=== PATIENT | female | born 1955 | race Caucasian/White ===

== ENCOUNTER 2018-08-16 11:51 | Emergency (ER) | payer MEDICARE, OTHER ==
[~2018-08-16] VITALS: Ht 160 cm; Wt 100.0 kg
[~2018-08-16 11:51] MED LIST: AMBIEN10 MG PO; AMIODARONE HCL200 MG PO; AMITRIPTYLINE100 MG PO; EMLA CREAM 30 G30 G1 TOPICAL; FERROUS SULFAT325 MG PO; FLOMAX0.4 MG PO; GENTAMICIN SULF30 G1 TOPICAL; LEVEMIR FL100 UNIT/1 SC; LEVSIN/ANASP0.125 MG PO; LINZESS145 MCG PO; LISINOPRIL20 MG PO; NOVOLOG100 UNIT/1 SC; OXYCODONE HCL10 MG PO; PACERONE400 MG PO; PROCRIT/EP40000 UNIT SQ; PROTONIX40 MG PO; PROZAC40 MG PO; RENVELA0.8 GM PO; ROCALTROL0.25 MCG PO; ROPINIROLE HCL2 MG PO; SYNTHROID25 MCG PO; VITAMIN B-121000 MCG INJ; VITAMIN D250000 UNIT PO; VOLTAREN100 GM TOPICAL; XANAX1 MG PO; ZANAFLEX4 MG PO; ZIAC 5-6.25 MG1 TAB PO; ZYLOPRIM100 MG PO
[2018-08-16 12:00] VITALS: Ht 160 cm; Wt 100.0 kg
[2018-08-16 13:18] LABS: BASOPHILS 0.7 % (0-2); EOSINOPHILS 6.8 % (0-7); HEMATOCRIT 31.8 % (36.0-48.0); HEMOGLOBIN 9.6 g/dL (12-16); IMMATURE GRANULOCYTES 0.7 % (0-5); LYMPHOCYTES 26.9 % (15-50); MCH 28.2 pg (26.0-34.0); MCHC 30.2 g/dL (31.0-37.0); MCV 93.3 fL (80.0-100.0); MEAN PLATELET VOLUME 8.7 fL (7.4-10.4); MONOCYTES 8.6 % (2-11); NEUTROPHILS 56.3 % (40-80); PLATELET COUNT 248 10x3/uL (130-400); RBC 3.41 10x6/uL (4.00-5.40); RDW 17.3 % (11.5-14.5); WBC 7.2 10x3/uL (4.8-10.8)
[2018-08-16 13:26] LABS: INR 1.14 (0.85-1.17); PROTIME 14.1 SECONDS (11.6-15.0)
[2018-08-16 13:34] LABS: ALBUMIN 2.4 g/dL (3.4-5.0); ALKALINE PHOSPHATASE 113 U/L (46-116); ALT (SGPT) 19 U/L (10-68); BILIRUBIN - TOTAL 0.54 mg/dL (0.2-1.3); CALC OSMOLALITY 273 mosm/kg (275-300); CALCIUM 9.8 mg/dL (8.5-10.1); CHLORIDE - SERUM 94 mmol/L (98-107); CREATININE - SERUM 6.3 mg/dL (0.6-1.3); GLUCOSE 103 mg/dL (74-106); POTASSIUM - SERUM 3.7 mmol/L (3.5-5.1); PROTEIN - SERUM 8.7 g/dL (6.4-8.2); SODIUM 133 mmol/L (136-145); UREA NITROGEN 34 mg/dL (7-18); eGFR NON AFRICAN AMERICAN 7 mL/min (90-120)
[2018-08-16 13:44] LABS: CKMB 0.5 U/L (0.0-3.6); CREATINE KINASE 24 UL (21-215); MAGNESIUM - SERUM 1.8 mg/dL (1.8-2.4); TROPONIN-I < 0.017 ng/mL (0.000-0.060)
[2018-08-16 19:45] VITALS: BP 100/42
== END 2018-08-16 19:45 | disposition home or self-care (01) ==
LOC: D.ER 11:51
PROVIDERS: Emergency Medicine
DX: E11.9 Type 2 diabetes mellitus without complications (principal); N18.6 End stage renal disease; D63.1 Anemia in chronic kidney disease; Z99.2 Dependence on renal dialysis; Z86.79 Personal history of other diseases of the circulatory system; R55 Syncope and collapse

== ENCOUNTER 2018-08-19 10:54 | Inpatient (IN) | payer MEDICARE, OTHER ==
[~2018-08-19] VITALS: Ht 154.9 cm; Wt 99.8 kg
[2018-08-19 11:46] LABS: BASOPHILS 0.6 % (0-2); EOSINOPHILS 5.6 % (0-7); HEMATOCRIT 32.7 % (36.0-48.0); HEMOGLOBIN 10.2 g/dL (12-16); IMMATURE GRANULOCYTES 0.8 % (0-5); LYMPHOCYTES 20.8 % (15-50); MCH 28.7 pg (26.0-34.0); MCHC 31.2 g/dL (31.0-37.0); MCV 92.1 fL (80.0-100.0); MEAN PLATELET VOLUME 8.5 fL (7.4-10.4); MONOCYTES 6.4 % (2-11); NEUTROPHILS 65.8 % (40-80); PLATELET COUNT 250 10x3/uL (130-400); RBC 3.55 10x6/uL (4.00-5.40); RDW 17.2 % (11.5-14.5); WBC 7.2 10x3/uL (4.8-10.8)
[2018-08-19 12:07] LABS: ALBUMIN 2.7 g/dL (3.4-5.0); ALKALINE PHOSPHATASE 112 U/L (46-116); ALT (SGPT) 20 U/L (10-68); BILIRUBIN - TOTAL 0.56 mg/dL (0.2-1.3); CALC OSMOLALITY 278 mosm/kg (275-300); CARBON DIOXIDE 26.2 mmol/L (21.0-32.0); CHLORIDE - SERUM 94 mmol/L (98-107); GLUCOSE 105 mg/dL (74-106); POTASSIUM - SERUM 3.7 mmol/L (3.5-5.1); PROTEIN - SERUM 8.9 g/dL (6.4-8.2); SODIUM 132 mmol/L (136-145); UREA NITROGEN 52 mg/dL (7-18); eGFR NON AFRICAN AMERICAN 5 mL/min (90-120)
[2018-08-19 12:17] LABS: CKMB 0.7 U/L (0.0-3.6); CREATINE KINASE 26 UL (21-215); MAGNESIUM - SERUM 2.1 mg/dL (1.8-2.4); TROPONIN-I < 0.017 ng/mL (0.000-0.060)
--- NOTE | 2018-08-19 14:50 | MORECARE ---
CASE MANAGEMENT DISCHARGE SUMMARY PATIENT: NAV LEWIS UNIT: [id number] ADM DATE: 08/19/18 AGE: 63 : 53 SEX: F [facility] AUTHOR: OZ EL PHYSICIAN: REFERRING PHYSICIAN: LUCA SOLANO MD DATE OF SERVICE: 08/19/18 Discharge Plan Patient Name: NAV LEWIS Facility: [facility]:[place] : 1955 Planned Disposition: Anticipated Discharge Date: Discharge Date: Expected LOS: Initial Reviewer: [email or web address] Initial Review Date: 08/19/2018 Generated: 08/19/18 3:50 pm Patient Name: NAV LEWIS Page [id number] at 1450 All edits/amendments must be made on the electronic document DICTATION DATE: 08/19/181448 TRANSPORTATION BROKER: AUDREY 08/19/181448 RPT#: [id number] DC DATE: STATUS: ADM IN [facility] [address] [place] [address] END OF REPORT
--- NOTE | 2018-08-19 15:08 | NUR ---
RECEIVED REPORT FROM GRACIA IN ER. PT IN DIALYSIS AT THIS TIME.
[2018-08-19 17:13] LABS: BASOPHILS 0.8 % (0-2); EOSINOPHILS 4.5 % (0-7); HEMATOCRIT 29.7 % (36.0-48.0); HEMOGLOBIN 9.4 g/dL (12-16); LYMPHOCYTES 22.4 % (15-50); MCH 28.6 pg (26.0-34.0); MCHC 31.6 g/dL (31.0-37.0); MCV 90.3 fL (80.0-100.0); MEAN PLATELET VOLUME 8.5 fL (7.4-10.4); MONOCYTES 6.2 % (2-11); NEUTROPHILS 65.1 % (40-80); PLATELET COUNT 215 10x3/uL (130-400); RBC 3.29 10x6/uL (4.00-5.40); RDW 16.9 % (11.5-14.5)
[2018-08-19 17:29] LABS: WBC 5.1 10x3/uL (4.8-10.8)
[2018-08-19 18:04] LABS: ANION GAP 15.2 mmol/L (8-16); CALCIUM 8.8 mg/dL (8.5-10.1); CARBON DIOXIDE 25.8 mmol/L (21.0-32.0)
--- NOTE | 2018-08-19 18:25 | NUR ---
RECEIVED PT FROM [facility] AT THIS TIME. X4 STAFF TO GET PT TRANSFERED FROM STRETCHER TO BED. REPOSITIONED PT IN BED, PUT PT ON 3L NC. ORIENTED PT AND PT'S TO ROOM AND CALL LIGHT. PT DENIES ANY NEEDS AT THIS TIME. CALL LIGHT IN REACH, NAD NOTED.
[2018-08-19 21:25] VITALS: BP 90/42
--- NOTE | 2018-08-19 21:45 | NUR ---
PATIENT RESTING IN BED WITH NO S/S OF DISTRESS. BED IN LOWEST POSITION AND CALL LIGHT WITHIN REACH. ENCOURAGED THE PATIENT TO CALL IF SHE HAS NEEDS. WILL CONTINUE TO MONITOR.
--- NOTE | 2018-08-19 23:49 | NUR ---
BEGAN TUBE FEEDING
[2018-08-20 05:50] VITALS: BP 89/32
[2018-08-20 06:26] VITALS: BP 110/51; BMI 41.6
[2018-08-20 06:36] LABS: BASOPHILS 0.9 % (0-2); HEMATOCRIT 30.7 % (36.0-48.0); HEMOGLOBIN 9.4 g/dL (12-16); IMMATURE GRANULOCYTES 0.9 % (0-5); LYMPHOCYTES 31.5 % (15-50); MCH 28.3 pg (26.0-34.0); MCHC 30.6 g/dL (31.0-37.0); MEAN PLATELET VOLUME 8.2 fL (7.4-10.4); MONOCYTES 8.7 % (2-11); PLATELET COUNT 225 10x3/uL (130-400); RBC 3.32 10x6/uL (4.00-5.40); RDW 17.5 % (11.5-14.5); WBC 5.4 10x3/uL (4.8-10.8)
[2018-08-20 06:48] LABS: MCV 92.5 fL (80.0-100.0)
[2018-08-20 07:02] LABS: ANION GAP 13.3 mmol/L (8-16); CALCIUM 9.3 mg/dL (8.5-10.1); CARBON DIOXIDE 27.9 mmol/L (21.0-32.0); CREATININE - SERUM 6.2 mg/dL (0.6-1.3); POTASSIUM - SERUM 3.2 mmol/L (3.5-5.1)
[2018-08-20 08:33] VITALS: BP 114/37
--- NOTE | 2018-08-20 09:43 | NUR ---
Rehab Note- Acute Inpatient Rehab prescreen order received. The patient is a new admit & has pending PT, OT, & ST Evals. The doctor has suggested needing correction care placement d/t the families inability to care for the patient- will follow at this time. Thank you for this referral! Lizette Batres RN CLinical Liaison, [facility] Rehab
[2018-08-20 10:47] VITALS: Ht 154.9 cm; Wt 99.8 kg
[2018-08-20 12:12] VITALS: BP 97/32
--- NOTE | 2018-08-20 13:50 | NUR ---
THIS NURSE AGREES WITH THE SWITCH COUPLER ASSESSMENT AND CHARTING.
--- NOTE | 2018-08-20 15:27 | NUR ---
OT NOTE: PT COMPLETED SIDE ROLLING WITH MOD A. PT COMPLETED UE AROM AXS. THANK YOU, HUMBERTO MARRUFO
[2018-08-20 16:44] VITALS: BP 106/41
--- NOTE | 2018-08-20 19:19 | NUR ---
PT RESTING QUIETLY. CALL LIGHT IN REACH. NO SIGNS OF DISTRESS OR PAIN. PEG FEEDING RUNNING CONTINOUSLY AT 45ML/HR WITH FLUSH Q4HRS. BED IN LOW. SIDE RAILS X2. RESP EVEN AND UNLABORED. WILL CONTINUE TO MONITOR.
[2018-08-20 20:00] VITALS: BP 95/38
[2018-08-21] VITALS: BP 105/41
--- NOTE | 2018-08-21 01:37 | NUR ---
PT RESTING QUIETLY. CALL LIGHT IN REACH. NO SIGNS OF DISTRESS OR PAIN. CHANGED OUT PEG FEED TUBING.
--- NOTE | 2018-08-21 04:20 | NUR ---
I have reviewed this patient and I concur with the Shift Assessment completed by the Licensed Practical Nurse today this shift.
[2018-08-21 04:30] VITALS: BP 107/46
[2018-08-21 07:15] LABS: BASOPHILS 0.7 % (0-2); EOSINOPHILS 7.3 % (0-7); HEMATOCRIT 31.3 % (36.0-48.0); HEMOGLOBIN 9.4 g/dL (12-16); IMMATURE GRANULOCYTES 0.9 % (0-5); LYMPHOCYTES 31.6 % (15-50); MCV 93.2 fL (80.0-100.0); MEAN PLATELET VOLUME 8.9 fL (7.4-10.4); MONOCYTES 10.9 % (2-11); NEUTROPHILS 48.6 % (40-80); PLATELET COUNT 246 10x3/uL (130-400); RBC 3.36 10x6/uL (4.00-5.40); RDW 17.3 % (11.5-14.5); WBC 5.3 10x3/uL (4.8-10.8)
[2018-08-21 07:17] LABS: ANION GAP 12.1 mmol/L (8-16); CALCIUM 9.8 mg/dL (8.5-10.1); CARBON DIOXIDE 29.4 mmol/L (21.0-32.0); CREATININE - SERUM 7.1 mg/dL (0.6-1.3); POTASSIUM - SERUM 3.5 mmol/L (3.5-5.1)
[2018-08-21 08:55] VITALS: BP 129/46
--- NOTE | 2018-08-21 13:34 | NUR ---
Nutrition Follow up: Pt gone to dialysis now Spoke with pt this morning about nutrition. Pt reports tolerating TF well Pt has Nepro continuous feeds at 45mL/hour Pt had a swallow study yesterday she was cleared for regular diet Recommend to start diet as tolerated once medically feasible RD following
--- NOTE | 2018-08-21 14:56 | NUR ---
Rehab Note- Continue to follow at this time. Has EGD planned for 08/22/18. Lizette Batres RN CLinical Liaison, [facility] Rehab
[2018-08-21 16:20] VITALS: BP 122/40
--- NOTE | 2018-08-21 19:17 | NUR ---
PT RESTING IN BED. NO C/O PAIN. NO S/S OF ACUTE DISTRESS NOTED. PT DENIES ANYTHING FURTHER. WILL CONTINUE TO MONITOR.
--- NOTE | 2018-08-21 19:50 | NUR ---
LYING IN BED. ALERT AND ORIENTED X4. CONFUSED AT TIMES. RESP EVEN AND NONLABORED. O2 @ 3L/NC. SOB WITH EXERTION. BEDRIDDEN. REQUIRES STAFF X2 TO TURN PT. RT ARM RESERVE WITH FISTULA NOTED WITH DRSG INTACT. ALSO HAS PERITONEAL CATH. PEG TUBE IS CLAMPED AT THIS TIME. RESIDUAL OF 30 ML NOTED OF FEEDING. DRSG NOTED TO COCCYX. BILAT FEET ARE DRY, SCALY ON PLANTAR SURFACE. DENIES PAIN. BRUISES NOTED TO BUE. DENIES PAIN. SALINE LOCK NOTED TO LT FOREARM. PT AWARE THAT SHE IS NPO AFTER MIDNIGHT. SR ELEVATED X2. CL IN REACH.
[2018-08-21 19:59] VITALS: BP 121/49
[2018-08-22 01:10] VITALS: BP 112/43
--- NOTE | 2018-08-22 01:15 | NUR ---
V/S TAKEN AT THIS TIME. VERY DROWSY FROM SLEEPING PILL. NO DISTRESS. CL IN REACH.
[2018-08-22 04:32] VITALS: BP 140/55
--- NOTE | 2018-08-22 05:39 | NUR ---
PT IS DAILY WEIGHT BUT UNABLE TO STAND AND NO BEDSCALE ON BED.
--- NOTE | 2018-08-22 07:05 | NUR ---
INITIAL ROUNDING, PATIENT RESTING IN BED, SUPINE. SHE DENIES PAIN, O2 VIA NC IN PLACE. AWAITING EGD. TUBE FEEDING OFF. CALL ALMA IN REACH
[2018-08-22 07:24] LABS: BASOPHILS 0.7 % (0-2); EOSINOPHILS 7.7 % (0-7); HEMOGLOBIN 9.4 g/dL (12-16); IMMATURE GRANULOCYTES 0.7 % (0-5); LYMPHOCYTES 38.7 % (15-50); MCH 28.4 pg (26.0-34.0); MCHC 30.3 g/dL (31.0-37.0); MCV 93.7 fL (80.0-100.0); MEAN PLATELET VOLUME 8.8 fL (7.4-10.4); MONOCYTES 8.2 % (2-11); PLATELET COUNT 206 10x3/uL (130-400); RBC 3.31 10x6/uL (4.00-5.40); RDW 17.3 % (11.5-14.5); WBC 4.1 10x3/uL (4.8-10.8)
[2018-08-22 07:39] LABS: ANION GAP 9.5 mmol/L (8-16); CALCIUM 9.8 mg/dL (8.5-10.1); CARBON DIOXIDE 32.7 mmol/L (21.0-32.0); CREATININE - SERUM 5.1 mg/dL (0.6-1.3); PHOSPHOROUS 4.4 mg/dL (2.5-4.9); POTASSIUM - SERUM 3.2 mmol/L (3.5-5.1)
[2018-08-22 08:13] VITALS: BP 128/30
[2018-08-22 12:12] VITALS: BP 122/36
--- NOTE | 2018-08-22 19:55 | NUR ---
LYING IN BED TALKING TO VISITORS. ALERT AND ORIENTED X4. RESP IRREG. O2 @3L/NC. BBS CTA BUT DIMINISHED BILAT. ABD OBESE. BS PRESENT X4 QUADS. PEG TUBE NOTED WITH NEPRO CONTINUOUS FEEDING INFUSING @ 45 ML/HR. PERITONEAL DIALYSIS CATH NOTED TO ABD WITH DRSG. RT ARM RESERVE WITH DIALYSIS FISTULA TO RT UPPER ARM. STATES SHE RARELY URINATES, JUST DRIBBLES. BRUISES NOTED TO BUE. SCDS IN USE BILAT. BILAT PLANTAR SURFACE OF FEET ARE DRY, SCALY. SALINE LOCK NOTED NOTED TO LT FOREARM. DENIES PAIN. SR ELVATED X2. CL IN REACH. GEN WEAKNESS NOTED.
[2018-08-22 20:00] VITALS: BP 135/49
[2018-08-22 23:30] VITALS: BP 133/43
--- NOTE | 2018-08-23 01:06 | NUR ---
BED BATH GIVEN PER THERMAL CUTTER HELPER.
[2018-08-23 05:00] VITALS: BP 139/55
--- NOTE | 2018-08-23 05:15 | NUR ---
RESTED WELL DURING THE NIGHT. NO DISTRESS. CL IN REACH.
[2018-08-23 07:31] LABS: BASOPHILS 0.9 % (0-2); EOSINOPHILS 6.8 % (0-7); HEMATOCRIT 29.9 % (36.0-48.0); HEMOGLOBIN 9.1 g/dL (12-16); IMMATURE GRANULOCYTES 0.7 % (0-5); LYMPHOCYTES 35.7 % (15-50); MCH 28.3 pg (26.0-34.0); MCHC 30.4 g/dL (31.0-37.0); MCV 93.1 fL (80.0-100.0); MEAN PLATELET VOLUME 8.9 fL (7.4-10.4); MONOCYTES 10.5 % (2-11); NEUTROPHILS 45.4 % (40-80); PLATELET COUNT 231 10x3/uL (130-400); RBC 3.21 10x6/uL (4.00-5.40); RDW 17.2 % (11.5-14.5); WBC 4.6 10x3/uL (4.8-10.8)
[2018-08-23 07:50] LABS: ANION GAP 8.9 mmol/L (8-16); CALCIUM 10.1 mg/dL (8.5-10.1); CARBON DIOXIDE 30.4 mmol/L (21.0-32.0); CREATININE - SERUM 5.6 mg/dL (0.6-1.3); PHOSPHOROUS 4.6 mg/dL (2.5-4.9); POTASSIUM - SERUM 3.3 mmol/L (3.5-5.1)
[2018-08-23 08:00] VITALS: BP 124/34
--- NOTE | 2018-08-23 08:33 | NUR ---
NEPRO DIETARY SUPP WILL NOT RECORD TO JUL. IT IS ORDERED IN DIETARY. CHANGED TO 30 ML/HR PER DR. GRANADOS.
--- NOTE | 2018-08-23 15:13 | MORECARE ---
CASE MANAGEMENT DISCHARGE SUMMARY PATIENT: NAV LEWIS UNIT: [id number] ADM DATE: 08/19/18 AGE: 63 : 53 SEX: F ROOM/BED: D.1207 AUTHOR: OZ EL PHYSICIAN: REFERRING PHYSICIAN: LUCA SOLANO MD DATE OF SERVICE: 08/23/18 Discharge Plan Patient Name: NAV LEWIS Facility: [facility]:[place] : 1955 Planned Disposition: Anticipated Discharge Date: Discharge Date: Expected LOS: Initial Reviewer: [email or web address] Initial Review Date: 08/19/2018 Generated: 08/23/18 4:12 pm External Providers External Provider: [facility] Next Contact Date: Service Request Date: Service Type: Resolution: Reviewer: Comments: Last DP export: 08/19/18 1:50 p Patient Name: NAV LEWIS Page [id number] at 1513 All edits/amendments must be made on the electronic document DICTATION DATE: 08/23/181511 SODA TESTER: AUDREY 08/23/18 151 RPT#: [id number] ME DATE: STATUS: ADM IN [facility] [address] [place] [address] END OF REPORT
--- NOTE | 2018-08-23 15:17 | NUR ---
OT NOTE: PT COMPLETED BED MOB WITH MAX A. PT COMPLETED SUPINE TO SIT WITH MAX A. PT COMPLETED EOB SITTING WITH MOD A. PT REQUIRED TOTAL A WITH KIRAN SOCKS. PT REQUIRE MAX A FOR SIT TO STAND. PT WOULD BENEFIT FROM [facility] FOR INCREASED QUALITY OF LIFE. THANK YOU, HUMBERTO MARRUFO
[2018-08-23 16:00] VITALS: BP 110/38
--- NOTE | 2018-08-23 16:02 | NUR ---
DENIES ANY NEEDS AT THIS TIME.
--- NOTE | 2018-08-23 16:11 | MORECARE ---
CASE MANAGEMENT DISCHARGE SUMMARY PATIENT: NAV LEWIS UNIT: [id number] ADM DATE: 08/19/18 AGE: 63 : 53 SEX: F ROOM/BED: D.1207 AUTHOR: OZ EL PHYSICIAN: REFERRING PHYSICIAN: LUCA SOLANO MD DATE OF SERVICE: 08/23/18 Discharge Plan Patient Name: NAV LEWIS Facility: [facility]:[place] : 1955 Planned Disposition: Mcfp Facility Anticipated Discharge Date: 08/26/18 Discharge Date: Expected LOS: 7 Initial Reviewer: [email or web address] Initial Review Date: 08/19/2018 Generated: 08/23/18 5:10 pm Last DP export: 08/23/18 2:13 p Patient Name: NAV LEWIS Page 50300 at 1611 All edits/amendments must be made on the electronic document DICTATION DATE: 08/23/18 1610 BLEACH RANGE OPERATOR: AUDREY 08/23/18 1610 RPT#: [id number] DC DATE: STATUS: ADM IN [facility] [address] [place] [address] END OF REPORT
--- NOTE | 2018-08-23 16:19 | MORECARE ---
CASE MANAGEMENT DISCHARGE SUMMARY PATIENT: NAV LEWIS UNIT: [id number] ADM DATE: 08/19/18 AGE: 63 : 53 SEX: F ROOM/BED: D.1207 AUTHOR: OZ EL PHYSICIAN: REFERRING PHYSICIAN: LUCA SOLANO MD DATE OF SERVICE: 08/23/18 Discharge Plan Patient Name: NAV LEWIS Facility: [facility]:[place] : 1955 Planned Disposition: Assisted Facility Anticipated Discharge Date: 08/26/18 Discharge Date: Expected LOS: 7 Initial Reviewer: [email or web address] Initial Review Date: 08/19/2018 Generated: 08/23/18 5:19 pm DCPIA - Discharge Planning Initial Assessment Updated by [email or web address]: Cinthia Mar on 08/23/18 4:13 pm * Is the patient Alert and Oriented? Yes * How many steps to enter\exit or inside your home? Ramp * PCP Dr. Jenkins in [place] * Pharmacy [facility] in [place] * Preadmission Environment Home with Family * ADLs Partial Dependent * Partial ADLs (Assistance needed) Ambulation Bathing Dressing Medication Management Toileting Transfers * Equipment CPAP Hospital Bed Bandar Lift Oxygen Wheelchair * Other Equipment Home and Portable Oxygen * List name and contact numbers for known caregivers / representatives who currently or will assist patient after discharge: Ilan Lewis, spouse, cell [phone] * Verbal permission to speak to the caregivers and representatives has been obtained from the patient. Yes * Community resources currently utilized Home Health * Please name any agencies selected above. [facility], [place] [facility], MWF 11:00, Medicaid Transportation * Additional services required to return to the preadmission environment? No * Can the patient safely return to the preadmission environment? Yes * Has this patient been hospitalized within the prior 30 days at any hospital? Yes Last DP export: 08/23/18 3:11 p Patient Name: NAV LEWIS Page [id number] at 1619 All edits/amendments must be made on the electronic document DICTATION DATE: 08/23/188 CADD OPERATOR: AUDREY 08/23/18 1618 RPT#: [id number] DC DATE: STATUS: ADM IN [facility] [address] [facility] [place] [address] END OF REPORT
--- NOTE | 2018-08-23 16:26 | MORECARE ---
CASE MANAGEMENT DISCHARGE SUMMARY PATIENT: NAV LEWIS UNIT: [id number] ADM DATE: 08/19/18 AGE: 63 : 53 SEX: F ROOM/BED: D.1207 AUTHOR: NIKKO,DOC PHYSICIAN: REFERRING PHYSICIAN: LUCA SOLANO MD DATE OF SERVICE: 08/23/18 Discharge Plan Patient Name: NAV LEWIS Facility: [facility]:[place] : 1955 Planned Disposition: Care Home Facility Anticipated Discharge Date: 08/26/18 Discharge Date: Expected LOS: 7 Initial Reviewer: [email or web address] Initial Review Date: 08/19/2018 Generated: 08/23/18 5:26 pm Comments DCP- Discharge Planning Updated by [email or web address]: Cinthia Mar on 08/23/18 3:[address] Patient Name: NAV LEWIS Admission Status: ER Accout number: [id number] Admission Date: 08-19-2018 : 1955 Admission Diagnosis:WEAKNESS Attending: LUCA SOLANO Current LOS: 4 Anticipated DC Date: 08-26-2018 Planned Disposition: Care Home Facility Primary Insurance: MEDICARE A & B Discharge Planning Comments: After obtaining verbal consent, CM met with patient and her spouse about discharge planning / needs. Patient and spouse informed CM that they want patient to go to [facility] SN[facility] (Medicare bed) for rehab upon hospital [place]. States they do not want to go back to [facility]. States they were not happy with their stay there. Spouse signed BRITTNEY form. CM called Roxann Mullins with [facility] about referral. Faxed records as requested. CM will continue to follow and assist as needed with discharge planning. [employer] And Recausticizing Operator: Cinthia Mar DCPIA - Discharge Planning Initial Assessment Updated by [email or web address]: Cinthia Mar on 08/23/18 4:13 pm * Is the patient Alert and Oriented? Yes * How many steps to enter\exit or inside your home? Ramp * PCP Dr. Jenkins in [place] * Pharmacy [facility] in [place] * Preadmission Environment Home with Family * ADLs Partial Dependent * Partial ADLs (Assistance needed) Ambulation Bathing Dressing Medication Management Toileting Transfers * Equipment CPAP Hospital Bed Bandar Lift Oxygen Wheelchair * Other Equipment Home and Portable Oxygen * List name and contact numbers for known caregivers / representatives who currently or will assist patient after discharge: Ilan Lewis, spouse, cell [phone] * Verbal permission to speak to the caregivers and representatives has been obtained from the patient. Yes * Community resources currently utilized Home Health * Please name any agencies selected above. [facility], [facility], MWF 11:00, Medicaid Transportation * Additional services required to return to the preadmission environment? No * Can the patient safely return to the preadmission environment? Yes * Has this patient been hospitalized within the prior 30 days at any hospital? Yes Coverage Notice Reviewer: [email or web address] Alka Mar Notice Issued Date-Time: 08/23/2018 14:35 Notice Type: Patient Choice Letter Notice Delivered To: Family Member Relationship to Patient: Spouse Print And Pattern Designer Name: Candelaria Head Delivery Method: HAND - Hand Delivered Cassy Days: Prior Verbal Notification: Recipient Understood Notice: Yes Recipient Signature: Yes Med Rec Note Co-signed by Attending: Coverage Notice Comment: Last DP export: 08/23/18 3:19 p Patient Name: NAV LEWIS Page 46760 at 1626 All edits/amendments must be made on the electronic document DICTATION DATE: 08/23/181625 WEIGHT CALLER: AUDREY 08/23/181625 RPT#: [id number] DC DATE: STATUS: ADM IN [facility] [address] [place] [address] END OF REPORT
[2018-08-23 21:14] VITALS: BP 146/61
[2018-08-24] VITALS: BP 138/51
--- NOTE | 2018-08-24 03:21 | NUR ---
I have reviewed this patient and I concur with the Shift Assessment completed by the Licensed Practical Nurse today this shift.
[2018-08-24 04:00] VITALS: BP 148/49
[2018-08-24 06:45] LABS: BASOPHILS 0.8 % (0-2); EOSINOPHILS 7.4 % (0-7); HEMOGLOBIN 9.7 g/dL (12-16); MCH 28.6 pg (26.0-34.0); MCHC 30.3 g/dL (31.0-37.0); MCV 94.4 fL (80.0-100.0); MEAN PLATELET VOLUME 8.6 fL (7.4-10.4); MONOCYTES 8.2 % (2-11); NEUTROPHILS 44.6 % (40-80); PLATELET COUNT 225 10x3/uL (130-400); RBC 3.39 10x6/uL (4.00-5.40); RDW 17.5 % (11.5-14.5)
[2018-08-24 07:06] LABS: CALCIUM 10.6 mg/dL (8.5-10.1); CARBON DIOXIDE 29.6 mmol/L (21.0-32.0); CREATININE - SERUM 4.3 mg/dL (0.6-1.3); PHOSPHOROUS 3.5 mg/dL (2.5-4.9); POTASSIUM - SERUM 3.6 mmol/L (3.5-5.1)
--- NOTE | 2018-08-24 07:30 | NUR ---
PT AOX4 RESP EVEN AND NONLABORED PT DENIES NEEDS AT THIS TIME SRX2 BED AT LOWEST SETTING CALL LIGHT WITHIN REACH WILL CONTINUE TO MONITOR
[2018-08-24 07:53] VITALS: BP 165/67
--- NOTE | 2018-08-24 11:07 | NUR ---
Nutrition Follow up: Pt is sleeping now Physician has decreased TF to 30mL/hour Spoke with nursing about diet order-order says clear liquid however physician note says ok to advance to full liquid- nursing to clarify if needed and make adjustments RD following
[2018-08-24 11:59] VITALS: BP 121/57
[2018-08-24 16:06] VITALS: BP 145/48
--- NOTE | 2018-08-24 19:25 | NUR ---
PT LYING IN BED. CALL LIGHT IN REACH. PT DENIES NEEDS AT THIS TIME OR PAIN. BED IN LOW. SIDE RAILS X2. PEG ON CONTINOUS FEEDING. PUMP WORKING AT 30ML/HR AND FLUSH Q4. PT ON 3L OF O2 VIA HUMIDIFIER. RESP EVEN AND UNLABORED. WILL CONTINUE TO MONITOR.
[2018-08-24 20:14] VITALS: BP 131/54
--- NOTE | 2018-08-25 01:58 | NUR ---
PT RESTING QUIETLY. CALL LIGHT IN REACH. NO SIGNS OF DISTRESS OR PAIN. RESP EVEN AND UNLABORED.
--- NOTE | 2018-08-25 02:06 | NUR ---
I have reviewed this patient and I concur with the Shift Assessment completed by the Licensed Practical Nurse today this shift.
[2018-08-25 05:17] VITALS: BP 142/56
[2018-08-25 06:44] LABS: ANION GAP 11.1 mmol/L (8-16); CALCIUM 11.6 mg/dL (8.5-10.1); CARBON DIOXIDE 29.6 mmol/L (21.0-32.0); CREATININE - SERUM 5.2 mg/dL (0.6-1.3); POTASSIUM - SERUM 3.7 mmol/L (3.5-5.1)
[2018-08-25 07:30] LABS: BASOPHILS 1.1 % (0-2); EOSINOPHILS 8.4 % (0-7); HEMATOCRIT 32.6 % (36.0-48.0); HEMOGLOBIN 9.7 g/dL (12-16); IMMATURE GRANULOCYTES 1.6 % (0-5); MCH 28.1 pg (26.0-34.0); MCHC 29.8 g/dL (31.0-37.0); MCV 94.5 fL (80.0-100.0); MEAN PLATELET VOLUME 9.1 fL (7.4-10.4); MONOCYTES 9.7 % (2-11); NEUTROPHILS 42.2 % (40-80); PLATELET COUNT 244 10x3/uL (130-400); RBC 3.45 10x6/uL (4.00-5.40); RDW 17.3 % (11.5-14.5); WBC 4.4 10x3/uL (4.8-10.8)
--- NOTE | 2018-08-25 07:30 | NUR ---
PT AOX4 RESP EVEN AND NONLABORED PT DENIES NEEDS AT THIS TIME IV TO LEFT FOREARM PATENT AND INTACT AT THIS TIME SRX2 BED AT LOWEST SETTING CALL LIGHT WITHIN REACH WILL CONTINUE TO MONITOR
[2018-08-25 07:39] VITALS: BP 161/62
[2018-08-25 15:54] LABS: APPEARANCE HAZY (CLEAR); COLOR YELLOW (YELLOW)
[2018-08-25 15:55] LABS: BILIRUBIN NEGATIVE (NEGATIVE); GLUCOSE NEGATIVE (NEGATIVE); KETONE NEGATIVE (NEGATIVE); NITRITE NEGATIVE (NEGATIVE); PROTEIN 2+ mg/dL (NEGATIVE); RED CELLS - URINE 0-5 /hpf (0-5); UROBILINOGEN NORMAL (NORMAL); WHITE CELLS - URINE 25-50 /hpf (0-5)
[2018-08-25 15:56] LABS: BACTERIA MODERATE /hpf (NONE SEEN); EPITHELIAL CELLS 0-5 /hpf (0-5)
[2018-08-25 15:57] LABS: YEAST >1+ WITH HYPHAE /hpf (NONE SEEN)
[2018-08-25 20:00] VITALS: BP 154/62
--- NOTE | 2018-08-25 20:50 | NUR ---
PATIENT RESTING IN BED WITH NO S/S OF DISTRESS AND DENIES NEEDS AT THIS TIME. ADMINISTERED MEDS PER ORDERS AND COMPLETED ASSESSMENT. BED IN LOWEST POSITION AND CALL LIGHT WITHIN REACH. ENCOURAGED THE PATIENT TO CALL IF SHE HAS NEEDS. WILL CONTINUE TO MONITOR.
[2018-08-26 00:10] VITALS: BP 149/50
[2018-08-26 04:00] VITALS: BP 168/60
[2018-08-26 07:29] LABS: ANION GAP 10.6 mmol/L (8-16); CARBON DIOXIDE 28.5 mmol/L (21.0-32.0); CREATININE - SERUM 5.5 mg/dL (0.6-1.3); POTASSIUM - SERUM 4.1 mmol/L (3.5-5.1)
[2018-08-26 07:40] LABS: BASOPHILS 0.5 % (0-2); EOSINOPHILS 6.9 % (0-7); HEMATOCRIT 32.5 % (36.0-48.0); HEMOGLOBIN 9.8 g/dL (12-16); IMMATURE GRANULOCYTES 0.5 % (0-5); LYMPHOCYTES 28.6 % (15-50); MCH 28.2 pg (26.0-34.0); MCHC 30.2 g/dL (31.0-37.0); MCV 93.7 fL (80.0-100.0); NEUTROPHILS 55.5 % (40-80); PLATELET COUNT 255 10x3/uL (130-400); RBC 3.47 10x6/uL (4.00-5.40)
[2018-08-26 07:41] LABS: WBC 6.1 10x3/uL (4.8-10.8)
--- NOTE | 2018-08-26 08:40 | NUR ---
AM MEDS GIVEN AT THIS TIME. PT IN BED, EATING BREAKFAST. PT A/O X4, RESP EVEN AND NONLABORED ON 3L. PEG INFUSING NEPHRO AT 20CC/HR. WITH 2OML FLUSH Q 4HR. LT FA IV SL. PT DENIES ANY NEED AT THIS TIME. CALL LIGHT IN REACH, AT BEDSIDE, NAD NOTED, WILL CONTINUE PLAN OF CARE.
[2018-08-26 08:42] VITALS: BP 153/57
--- NOTE | 2018-08-26 10:00 | NUR ---
PT TRANSFERED TO DIALYSIS VIA BED, NAD NOTED.
--- NOTE | 2018-08-26 13:31 | NUR ---
Nutrition Follow Up: Chart reviewed Diet: Full Liquid; TF of Nepro @ 20 ml/hr PO Intake: 50% BM: 08/25/18 Meds and labs reviewed Rec continue advancing diet as medically feasible. Will continue to honor food preferences within diet order. TF per . RD following.
--- NOTE | 2018-08-26 14:24 | NUR ---
RECEIVED PT BACK FROM DIALYSIS VIA BED, NO CHANGES FROM PREVIOUS ASSESSMENT. PT DENIES ANY NEEDS AT THIS TIME. AT BEDSIDE, NAD NOTED, WILL CONTINUE TO MONITOR.
--- NOTE | 2018-08-26 16:56 | MORECARE ---
CASE MANAGEMENT DISCHARGE SUMMARY PATIENT: NAV LEWIS UNIT: [id number] ADM DATE: 08/19/18 AGE: 63 : 53 SEX: F ROOM/BED: D.1207 AUTHOR: OZ EL PHYSICIAN: REFERRING PHYSICIAN: LUCA SOLANO MD DATE OF SERVICE: 08/26/18 Discharge Plan Patient Name: NAV LEWIS Facility: [facility]:[place] : 1955 Planned Disposition: Custodial Facility Anticipated Discharge Date: 08/26/18 Discharge Date: Expected LOS: 7 Initial Reviewer: [email or web address] Initial Review Date: 08/19/2018 Generated: 08/26/18 5:56 pm Comments DCP- Discharge Planning Updated by [email or web address]: Jeniffer Negron on 08/26/18 3:[address] CM SPOKE WITH CASI MULLINS TODAY REGARDING REFERRAL. SHE STATED WAS COGNIZANT OF THE PATIENT. AWAITING ADDITIONAL FINANCIAL INFORMATION. WILL PROVIDE CLINICAL UPDATE. DCP- Discharge Planning Updated by [email or web address]: Cinthia Mar on 08/23/18 3:[address] Patient Name: NAV LEWIS Admission Status: ER Accout number: [id number] Admission Date: 08-19-2018 : 1955 Admission Diagnosis:WEAKNESS Attending: LUCA SOLANO Current LOS: 4 Anticipated DC Date: 08-26-2018 Planned Disposition: Custodial Facility Primary Insurance: MEDICARE A & B Discharge Planning Comments: After obtaining verbal consent, CM met with patient and her spouse about discharge planning / needs. Patient and spouse informed CM that they want patient to go to [facility] (Medicare bed) for rehab upon hospital [place]. States they do not want to go back to [facility]. States they were not happy with their stay there. Spouse signed BRITTNEY form. CM called Casi Mullins with [facility] about referral. Faxed records as requested. CM will continue to follow and assist as needed with discharge planning. Handle Turner: Cinthia Mar DCPIA - Discharge Planning Initial Assessment Updated by [email or web address]: Cinthia Mar on 08/23/18 4:13 pm * Is the patient Alert and Oriented? Yes * How many steps to enter\exit or inside your home? Ramp * PCP Dr. Jenkins in [place] * Pharmacy [facility] in [place] * Preadmission Environment Home with Family * ADLs Partial Dependent * Partial ADLs (Assistance needed) Ambulation Bathing Dressing Medication Management Toileting Transfers * Equipment CPAP Hospital Bed Bandar Lift Oxygen Wheelchair * Other Equipment Home and Portable Oxygen * List name and contact numbers for known caregivers / representatives who currently or will assist patient after discharge: Ilan Lewis, spouse, cell [phone] * Verbal permission to speak to the caregivers and representatives has been obtained from the patient. Yes * Community resources currently utilized Home Health * Please name any agencies selected above. [facility], [place] [facility], MWF 11:00, Medicaid Transportation * Additional services required to return to the preadmission environment? No * Can the patient safely return to the preadmission environment? Yes * Has this patient been hospitalized within the prior 30 days at any hospital? Yes Coverage Notice Reviewer: [email or web address] Alka Mar Notice Issued Date-Time: 08/23/2018 14:35 Notice Type: Patient Choice Letter Notice Delivered To: Family Member Relationship to Patient: Spouse Configuration Management Manager Name: Candelaria Head Delivery Method: HAND - Hand Delivered Cassy Days: Prior Verbal Notification: Recipient Understood Notice: Yes Recipient Signature: Yes Med Rec Note Co-signed by Attending: Coverage Notice Comment: Last DP export: 08/23/18 3:26 p Patient Name: NAV LEWIS Page [id number] at 1656 All edits/amendments must be made on the electronic document DICTATION DATE: 08/26/181654 LACE CUTTER: AUDREY 08/26/181654 RPT#: [id number] DC DATE: STATUS: ADM IN [facility] [address] [place] [address] END OF REPORT
[2018-08-26 17:19] VITALS: BP 119/42
--- NOTE | 2018-08-26 17:30 | NUR ---
OT NOTE: PT COMPLETED SELF FEEDING TASK WITH SET UP. PT EDUCATED ON IMPORTANCE OF UE EXERCISES FOR INCREASED I WTH BED MOB . DHRUV SOMMERS COTA
--- NOTE | 2018-08-26 19:41 | NUR ---
PATIENT RESTING IN BED WITH NO S/S OF DISTRESS AND DENIES NEEDS AT THIS TIME. BED IN LOWEST POSITION AND CALL LIGHT WITHIN REACH. ENCOURAGED THE PATIENT TO CALL IF SHE HAS NEEDS. WILL CONTINUE TO MONITOR.
[2018-08-26 21:02] VITALS: BP 122/44
[2018-08-27] VITALS: BP 131/45
[2018-08-27 04:00] VITALS: BP 146/53
[2018-08-27 06:11] LABS: BASOPHILS 0.8 % (0-2); EOSINOPHILS 8.5 % (0-7); HEMATOCRIT 31.6 % (36.0-48.0); HEMOGLOBIN 9.5 g/dL (12-16); IMMATURE GRANULOCYTES 0.6 % (0-5); LYMPHOCYTES 37.2 % (15-50); MCH 28.4 pg (26.0-34.0); MCHC 30.1 g/dL (31.0-37.0); MCV 94.3 fL (80.0-100.0); MEAN PLATELET VOLUME 8.9 fL (7.4-10.4); MONOCYTES 8.5 % (2-11); NEUTROPHILS 44.4 % (40-80); PLATELET COUNT 253 10x3/uL (130-400); RBC 3.35 10x6/uL (4.00-5.40); RDW 17.4 % (11.5-14.5); WBC 4.8 10x3/uL (4.8-10.8)
[2018-08-27 06:50] LABS: ANION GAP 10.5 mmol/L (8-16); CALCIUM 11.2 mg/dL (8.5-10.1); CARBON DIOXIDE 31.2 mmol/L (21.0-32.0); PHOSPHOROUS 3.9 mg/dL (2.5-4.9); POTASSIUM - SERUM 3.7 mmol/L (3.5-5.1)
[2018-08-27 07:13] LABS: CREATININE - SERUM 3.8 mg/dL (0.6-1.3)
[2018-08-27 07:54] VITALS: BP 193/100
--- NOTE | 2018-08-27 11:47 | NUR ---
BLOOD SUGAR OF 95, NO COVERAGE NEEDED PER S/S. PT RESTING COMFORTABLY IN BED, DENIES ANY NEEDS AT THIS TIME. CALL LIGHT IN REACH, NAD NOTED, WILL CONTINUE TO MONITOR.
[2018-08-27 12:23] VITALS: BP 160/89
--- NOTE | 2018-08-27 15:10 | MORECARE ---
CASE MANAGEMENT DISCHARGE SUMMARY PATIENT: NAV LEWIS UNIT: [id number] ADM DATE: 08/19/18 AGE: 63 : 53 SEX: F ROOM/BED: D.1207 AUTHOR: NIKKO,DOC PHYSICIAN: REFERRING PHYSICIAN: LUCA SOLANO MD DATE OF SERVICE: 08/27/18 Discharge Plan Patient Name: NAV LEWIS Facility: [facility]:[place] : 1955 Planned Disposition: Fpc Facility Anticipated Discharge Date: 08/26/18 Discharge Date: Expected LOS: 7 Initial Reviewer: [id number] Initial Review Date: 08/19/2018 Generated: 08/27/18 4:10 pm Comments DCP- Discharge Planning Updated by [id number]: Cinthia Mar on 08/27/18 2:[address] CM spoke with Casi Mullins about status of acceptance. Casi stated facility was verifying patient's secondary insurance and would let CM know as soon as facility was finished making financial arrangements. CM faxed updated records as requested. CM will continue to follow and assist as needed with discharge planning / needs. DCP- Discharge Planning Updated by [id number]: Jeniffer Negron on 08/26/18 3:[address] CM SPOKE WITH CASI MULLINS TODAY REGARDING REFERRAL. SHE STATED WAS COGNIZANT OF THE PATIENT. AWAITING ADDITIONAL FINANCIAL INFORMATION. WILL PROVIDE CLINICAL UPDATE. DCP- Discharge Planning Updated by [id number]: Cinthia Mar on 08/23/18 3:[address] Patient Name: NAV LEWIS Admission Status: ER Accout number: [id number] Admission Date: 08-19-2018 : 1955 Admission Diagnosis:WEAKNESS Attending: LUCA SOLANO Current LOS: 4 Anticipated DC Date: 08-26-2018 Planned Disposition: Fpc Facility Primary Insurance: MEDICARE A & B Discharge Planning Comments: After obtaining verbal consent, CM met with patient and her spouse about discharge planning / needs. Patient and spouse informed CM that they want patient to go to [facility] (Medicare bed) for rehab upon hospital [place]. States they do not want to go back to [facility]. States they were not happy with their stay there. Spouse signed BRITTNEY form. CM called Casi Mullins with [facility] about referral. Faxed records as requested. CM will continue to follow and assist as needed with discharge planning. Estimator And Drafter Supervisor: Cinthia Mar DCPIA - Discharge Planning Initial Assessment Updated by [email or web address]: Cinthia Mar on 08/23/18 4:13 pm * Is the patient Alert and Oriented? Yes * How many steps to enter\exit or inside your home? Ramp * PCP Dr. Jenkins in [place] * Pharm[facility] in [place] * Preadmission Environment Home with Family * ADLs Partial Dependent * Partial ADLs (Assistance needed) Ambulation Bathing Dressing Medication Management Toileting Transfers * Equipment CPAP Hospital Bed Bandar Lift Oxygen Wheelchair * Other Equipment Home and Portable Oxygen * List name and contact numbers for known caregivers / representatives who currently or will assist patient after discharge: Ilan Lewis, spouse, cell [phone] * Verbal permission to speak to the caregivers and representatives has been obtained from the patient. Yes * Community resources currently utilized Home Health * Please name any agencies selected above. [facility], [place] [facility], MWF 11:00, Medicaid Transportation * Additional services required to return to the preadmission environment? No * Can the patient safely return to the preadmission environment? Yes * Has this patient been hospitalized within the prior 30 days at any hospital? Yes Coverage Notice Reviewer: [id number] - Cinthia Mar Notice Issued Date-Time: 08/23/2018 14:35 Notice Type: Patient Choice Letter Notice Delivered To: Family Member Relationship to Patient: Spouse Psychology Associate Name: Ilan LewisCandlearia Delivery Method: HAND - Hand Delivered Cassy Days: Prior Verbal Notification: Recipient Understood Notice: Yes Recipient Signature: Yes Med Rec Note Co-signed by Attending: Coverage Notice Comment: Last DP export: 08/26/18 3:56 pm Patient Name: NAV LEWIS Page [id number] at 1510 All edits/amendments must be made on the electronic document DICTATION DATE: 08/27/18 151 ACADEMIC DIRECTOR: AUDREY 08/27/18 151 RPT#: [id number] [place] DATE: STATUS: ADM IN [facility] [address] [place] [address] END OF REPORT
--- NOTE | 2018-08-27 15:58 | MORECARE ---
CASE MANAGEMENT DISCHARGE SUMMARY PATIENT: NAV LEWIS UNIT: [id number] ADM DATE: 08/19/18 AGE: 63 : 53 SEX: F ROOM/BED: D.1207 AUTHOR: NIKKO,DOC PHYSICIAN: REFERRING PHYSICIAN: LUCA SOLANO MD DATE OF SERVICE: 08/27/18 Discharge Plan Patient Name: NAV LEWIS Facility: [facility]:[place] : 1955 Planned Disposition: Retirement Facility Anticipated Discharge Date: 08/26/18 Discharge Date: Expected LOS: 7 Initial Reviewer: [id number] Initial Review Date: 08/19/2018 Generated: 08/27/18 4:57 pm Comments DCP- Discharge Planning Updated by [email or web address]: Cinthia Mar on 08/27/18 2:[address] CM spoke with patient and her about status of referral . Explained to them the CM did not think her insurance would approve SNF since she was refusing PT visits. CM asked patient and spouse what their discharge plan is if SNF does not accept her. Both stated the plan was to discharge to home via ambulance. A few minutes later patient's spouse came to nurses station and informed CM that they decided to just go home. They do not want to pursue SNF at this time. CM verbalized understanding. CM called Peace Tian to verify HD was able to resume at patient's usual clinic tomorrow. Peace stated yes, she would contact HD clinic and tell them to expect patient tomorrow. CM called Dr. Guillory, bucky Marshall about patient's request to discharge home. SN was informed that Dr. Regalado was composition teacher. CM called and spoke with Blanca Gaitan. Was informed by Blanca that patient could not discharge home d/t safety issues. Blanca stated Dr. Guillory will speak with patient in a.m. CM informed patient and spouse. DCP- Discharge Planning Updated by [id number]: Cinthia Mar on 08/27/18 2:[address] CM spoke with Casi Mullins about status of acceptance. Casi stated facility was verifying patient's secondary insurance and would let CM know as soon as facility was finished making financial arrangements. CM faxed updated records as requested. CM will continue to follow and assist as needed with discharge planning / needs. DCP- Discharge Planning Updated by [id number]: Jeniffer Jamil on 08/26/18 3:[address] CM SPOKE WITH CASI MULLINS TODAY REGARDING REFERRAL. SHE STATED WAS COGNIZANT OF THE PATIENT. AWAITING ADDITIONAL FINANCIAL INFORMATION. WILL PROVIDE CLINICAL UPDATE. DCP- Discharge Planning Updated by [id number]: Cinthia Mar on 08/23/18 3:[address] Patient Name: NAV LEWIS Admission Status: ER Accout number: [id number] Admission Date: 08-19-2018 : 1955 Admission Diagnosis:WEAKNESS Attending: LUCA SOLANO Current LOS: 4 Anticipated DC Date: 08-26-2018 Planned Disposition: Retirement Facility Primary Insurance: MEDICARE A & B Discharge Planning Comments: After obtaining verbal consent, CM met with patient and her spouse about discharge planning / needs. Patient and spouse informed CM that they want patient to go to [facility] (Medicare bed) for rehab upon hospital [place]. States they do not want to go back to [facility]. States they were not happy with their stay there. Spouse signed BRITTNEY form. CM called Casi Mullins with [facility] about referral. Faxed records as requested. CM will continue to follow and assist as needed with discharge planning. Equine Intern: Cinthia Mar DCPIA - Discharge Planning Initial Assessment Updated by [id number]: Cinthia Mar on 08/23/18 4:13 pm * Is the patient Alert and Oriented? Yes * How many steps to enter\exit or inside your home? Ramp * PCP Dr. Jenkins in [place] * Pharmacy [facility] in [place] * Preadmission Environment Home with Family * ADLs Partial Dependent * Partial ADLs (Assistance needed) Ambulation Bathing Dressing Medication Management Toileting Transfers * Equipment CPAP Hospital Bed Bandar Lift Oxygen Wheelchair * Other Equipment Home and Portable Oxygen * List name and contact numbers for known caregivers / representatives who currently or will assist patient after discharge: Ilan Lewis, spouse, cell [phone] * Verbal permission to speak to the caregivers and representatives has been obtained from the patient. Yes * Community resources currently utilized Home Health * Please name any agencies selected above. [facility], [place] [facility], MWF 11:00, Medicaid Transportation * Additional services required to return to the preadmission environment? No * Can the patient safely return to the preadmission environment? Yes * Has this patient been hospitalized within the prior 30 days at any hospital? Yes Coverage Notice Reviewer: [id number] Alka Mar Notice Issued Date-Time: 08/23/2018 14:35 Notice Type: Patient Choice Letter Notice Delivered To: Family Member Relationship to Patient: Spouse Dental Ceramist Assistant Name: Ilan Lewis, Candelaria Delivery Method: HAND - Hand Delivered Cassy Days: Prior Verbal Notification: Recipient Understood Notice: Yes Recipient Signature: Yes Med Rec Note Co-signed by Attending: Coverage Notice Comment: Last DP export: 08/27/18 2:10 pm Patient Name: NAV LEWIS Page [id number] at 1558 All edits/amendments must be made on the electronic document DICTATION DATE: 08/27/181556 COMMUNITY ENGAGEMENT MANAGER: AUDREY 08/27/18 155 RPT#: [id number] DC DATE: STATUS: ADM IN [facility] [address] [place] [address] END OF REPORT
[2018-08-27 16:10] LABS: SPE - A/G RATIO 0.6 (0.7-1.7); SPE - ALBUMIN 3.1 g/dL (2.9-4.4); SPE - ALPHA-1 GLOBULIN 0.3 g/dL (0.0-0.4); SPE - ALPHA-2 GLOBULIN 0.8 g/dL (0.4-1.0); SPE - BETA GLOBULIN 0.8 g/dL (0.7-1.3); SPE - M-SPIKE Not Observed g/dL (Not Observed); SPE - TOTAL PROTEIN 7.9 g/dL (6.0-8.5)
--- NOTE | 2018-08-27 19:50 | NUR ---
OT NOTE: PT EDUCATED ON THE BENEFITS OF THERAPY PARTICIPATION. PT DECLINED THERAPY.
[2018-08-27 20:00] VITALS: BP 160/63
--- NOTE | 2018-08-27 22:03 | NUR ---
AWAKE,ALERT.COMPLAINS OF HEADACHE.REQUESTED AND GIVEN ULTRAM FOR PAIN RELIEF.SL TO LFA INTACT WITHOUT REDNESS OR EDEMA NOTED. RESP EVEN AND UNLABORED.NO DISTRESS NOTED. CL IN REACH
[2018-08-28] VITALS: BP 140/55
[2018-08-28 04:30] VITALS: BP 152/55
[2018-08-28 05:43] LABS: BASOPHILS 0.8 % (0-2); EOSINOPHILS 7.1 % (0-7); HEMATOCRIT 31.1 % (36.0-48.0); HEMOGLOBIN 9.4 g/dL (12-16); IMMATURE GRANULOCYTES 0.2 % (0-5); LYMPHOCYTES 36.3 % (15-50); MCH 28.2 pg (26.0-34.0); MCHC 30.2 g/dL (31.0-37.0); MCV 93.4 fL (80.0-100.0); MEAN PLATELET VOLUME 8.7 fL (7.4-10.4); MONOCYTES 8.2 % (2-11); NEUTROPHILS 47.4 % (40-80); PLATELET COUNT 256 10x3/uL (130-400); RBC 3.33 10x6/uL (4.00-5.40); RDW 17.2 % (11.5-14.5); WBC 4.9 10x3/uL (4.8-10.8)
[2018-08-28 06:08] LABS: ANION GAP 9.1 mmol/L (8-16); CALCIUM 11.2 mg/dL (8.5-10.1); CARBON DIOXIDE 30.9 mmol/L (21.0-32.0); CREATININE - SERUM 4.4 mg/dL (0.6-1.3)
--- NOTE | 2018-08-28 08:00 | NUR ---
AM MEDS GIVEN AT THIS TIME. PT UP TO SIDE OF BED, EATING BREAKFAST. WAS ABLE TO TAKE MEDICATIONS WITH NO TROUBLE SWALLOWING. PT A/O X4, RESP EVEN AND NONLABORED ON 3L. LT FA IV SL. PT DENIES ANY NEEDS AT THIS TIME. AT BEDSIDE, NAD NOTED,W ILL CONTINUE TO MONITOR.
[2018-08-28 09:25] VITALS: BP 154/61
--- NOTE | 2018-08-28 11:23 | NUR ---
PT IN DIALYISIS AT THIS TIME.
[2018-08-28 12:46] VITALS: BP 148/69
[2018-08-28 16:23] VITALS: BP 152/63
--- NOTE | 2018-08-28 17:00 | NUR ---
BLOOD SUGAR OF 87, NO COVERAGE NEEDED PER S/S. HELPED PT TO USE USE BEDPAN. PT DENIES ANY OTHER NEEDS AT THIS TIME. CALL LIGHT IN REACH, NAD NOTED.
--- NOTE | 2018-08-28 17:05 | NUR ---
PATIENT LAYING IN BED, NO COMPLAINTS AT THIS TIME. NO DISTRESS NOTED.
--- NOTE | 2018-08-28 19:10 | NUR ---
PATIENT LAYING IN BED. NO COMPLAINTS AT THIS TIME. NO DISTRESS NOTED.
--- NOTE | 2018-08-28 20:41 | NUR ---
OT NOTE: PT REFUSED THERAPY. PT STATED SHE IS TOO TIRED AND HURTS. HUMBERTO EDUCATED PT ON THE BENEFITS OF SKILLED THERAPY SERVICES. THANK YOU, HUMBERTO MARRUFO
[2018-08-28 22:52] VITALS: BP 190/95
[2018-08-29] VITALS: BP 118/49
--- NOTE | 2018-08-29 02:16 | NUR ---
I have reviewed this patient and I concur with the Shift Assessment completed by the Licensed Practical Nurse today this shift.
[2018-08-29 04:00] VITALS: BP 142/56
[2018-08-29 05:26] LABS: BASOPHILS 0.6 % (0-2); EOSINOPHILS 6.2 % (0-7); HEMATOCRIT 30.9 % (36.0-48.0); HEMOGLOBIN 9.5 g/dL (12-16); IMMATURE GRANULOCYTES 0.4 % (0-5); LYMPHOCYTES 35.7 % (15-50); MCH 28.5 pg (26.0-34.0); MCHC 30.7 g/dL (31.0-37.0); MCV 92.8 fL (80.0-100.0); MEAN PLATELET VOLUME 8.6 fL (7.4-10.4); MONOCYTES 10.3 % (2-11); NEUTROPHILS 46.8 % (40-80); PLATELET COUNT 236 10x3/uL (130-400); RBC 3.33 10x6/uL (4.00-5.40); RDW 17.3 % (11.5-14.5); WBC 4.7 10x3/uL (4.8-10.8)
[2018-08-29 05:45] LABS: ANION GAP 8.8 mmol/L (8-16); CALCIUM 9.9 mg/dL (8.5-10.1); CARBON DIOXIDE 30.2 mmol/L (21.0-32.0); CREATININE - SERUM 3.7 mg/dL (0.6-1.3); PHOSPHOROUS 3.8 mg/dL (2.5-4.9)
--- NOTE | 2018-08-29 07:20 | NUR ---
RESTING QUIETLY IN BED. DENIES ANY NEEDS AT THIS TIME.
[2018-08-29 08:18] VITALS: BP 148/68
[2018-08-29 12:24] VITALS: BP 150/78
--- NOTE | 2018-08-29 13:18 | NUR ---
DIALYSIS COORDINATOR: [facility] MWF. DANILO VAIL.
--- NOTE | 2018-08-29 16:38 | MORECARE ---
CASE MANAGEMENT DISCHARGE SUMMARY PATIENT: NAV LEWIS UNIT: [id number] ADM DATE: 08/19/18 AGE: 63 : 53 SEX: F ROOM/BED: D.1207 AUTHOR: NIKKO,DOC PHYSICIAN: REFERRING PHYSICIAN: LUCA SOLANO MD DATE OF SERVICE: 08/29/18 Discharge Plan Patient Name: NAV LEWIS Facility: [facility]:[place] : 1955 Planned Disposition: Usp Facility Anticipated Discharge Date: 08/26/18 Discharge Date: Expected LOS: 7 Initial Reviewer: [id number] Initial Review Date: 08/19/2018 Generated: 08/29/18 5:38 pm Comments DCP- Discharge Planning Updated by [email or web address]: Cinthia Mar on 08/29/18 3:[address] Late Entry for 08/29/18 15:20 CM met with patient about discharge plans to go home with [facility]. Patient signed BRITTNEY for [facility]. CM explained and served DC [facility]. Patient informed CM that she would need to go home via ambulance. CM informed patients nurse, Roz. CM called [facility]. Spoke with Cody about referral. States agency will admit patient on Sunday to home health. Faxed records as requested. CM Called Peace Tian with [facility] about need to resume regularly scheduled dialysis in [place] starting Sunday. Peace verbalized understanding and stated everything is ready for patient to resume dialysis Sunday. CM will continue to follow and assist as needed with discharge planning / needs. DCP- Discharge Planning Updated by [id number]: Cinthia Mar on 08/27/18 2:[address] CM spoke with patient and her about status of referral . Explained to them the CM did not think her insurance would approve SNF since she was refusing PT visits. CM asked patient and spouse what their discharge plan is if SNF does not accept her. Both stated the plan was to discharge to home via ambulance. A few minutes later patient's spouse came to nurses station and informed CM that they decided to just go home. They do not want to pursue SNF at this time. CM verbalized understanding. CM called Peace Tian to verify HD was able to resume at patient's usual clinic tomorrow. Peace stated yes, she would contact HD clinic and tell them to expect patient tomorrow. CM called Dr. Guillory, spoke Joanna about patient's request to discharge home. SN was informed that Dr. Regalado was strength and conditioning coach. CM called and spoke with Blanca Gaitan. Was informed by Blanca that patient could not discharge home d/t safety issues. Blanca stated Dr. Guillory will speak with patient in a.m. CM informed patient and spouse. DCP- Discharge Planning Updated by [id number]: Cinthia Mar on 08/27/18 2:[address] CM spoke with Casi Mullins about status of acceptance. Casi stated facility was verifying patient's secondary insurance and would let CM know as soon as facility was finished making financial arrangements. CM faxed updated records as requested. CM will continue to follow and assist as needed with discharge planning / needs. DCP- Discharge Planning Updated by [email or web address]: Jeniffer Negron on 08/26/18 3:[address] CM SPOKE WITH CASI MULLINS TODAY REGARDING REFERRAL. SHE STATED WAS COGNIZANT OF THE PATIENT. AWAITING ADDITIONAL FINANCIAL INFORMATION. WILL PROVIDE CLINICAL UPDATE. DCP- Discharge Planning Updated by [id number]: Cinthia Mar on 08/23/18 3:[address] Patient Name: NAV LEWIS Admission Status: ER Accout number: [id number] Admission Date: 08-19-2018 : 1955 Admission Diagnosis:WEAKNESS Attending: LUCA SOLANO Current LOS: 4 Anticipated DC Date: 08-26-2018 Planned Disposition: Usp Facility Primary Insurance: MEDICARE A & B Discharge Planning Comments: After obtaining verbal consent, CM met with patient and her spouse about discharge planning / needs. Patient and spouse informed CM that they want patient to go to [facility] SN[facility] (Medicare bed) for rehab upon hospital [place]. States they do not want to go back to [facility]. States they were not happy with their stay there. Spouse signed BRITTNEY form. CM called Casi Mullins with [facility] about referral. Faxed records as requested. CM will continue to follow and assist as needed with discharge planning. Saw Sharpener: Cinthia Mar DCPIA - Discharge Planning Initial Assessment Updated by [email or web address]: Cinthia Mar on 08/23/18 4:13 pm * Is the patient Alert and Oriented? Yes * How many steps to enter\exit or inside your home? Ramp * PCP Dr. Jenkins in [place] * Pharmacy [facility] in [place] * Preadmission Environment Home with Family * ADLs Partial Dependent * Partial ADLs (Assistance needed) Ambulation Bathing Dressing Medication Management Toileting Transfers * Equipment CPAP Hospital Bed Bandar Lift Oxygen Wheelchair * Other Equipment Home and Portable Oxygen * List name and contact numbers for known caregivers / representatives who currently or will assist patient after discharge: Ilan Lewis, spouse, cell [phone] * Verbal permission to speak to the caregivers and representatives has been obtained from the patient. Yes * Community resources currently utilized Home Health * Please name any agencies selected above. [facility], [place] [facility], MWF 11:00, Medicaid Transportation * Additional services required to return to the preadmission environment? No * Can the patient safely return to the preadmission environment? Yes * Has this patient been hospitalized within the prior 30 days at any hospital? Yes Coverage Notice Reviewer: [id number] Mar Notice Issued Date-Time: 08/23/2018 14:35 Notice Type: Patient Choice Letter Notice Delivered To: Family Member Relationship to Patient: Spouse Professional Skateboarder Name: Ilan Jasmyn Lewis Delivery Method: HAND - Hand Delivered Cassy Days: Prior Verbal Notification: Recipient Understood Notice: Yes Recipient Signature: Yes Med Rec Note Co-signed by Attending: Coverage Notice Comment: [facility] Reviewer: [id number] Mar Notice Issued Date-Time: 08/29/2018 15:25 Notice Type: Patient Choice Letter Notice Delivered To: Patient Relationship to Patient: Self Professional Skateboarder Name: Delivery Method: HAND - Hand Delivered Cassy Days: Prior Verbal Notification: Recipient Understood Notice: Yes Recipient Signature: Yes Med Rec Note Co-signed by Attending: Coverage Notice Comment: [facility] Reviewer: [email or web address] Alka Mar Notice Issued Date-Time: 08/29/2018 15:30 Notice Type: IM Discharge Notice Notice Delivered To: Patient Relationship to Patient: Self Professional Skateboarder Name: Delivery Method: HAND - Hand Delivered Cassy Days: Prior Verbal Notification: Recipient Understood Notice: Yes Recipient Signature: Yes Med Rec Note Co-signed by Attending: Coverage Notice Comment: Last DP export: 08/27/18 2:57 pm Patient Name: NAV LEWIS Page [id number] at 1638 All edits/amendments must be made on the electronic document DICTATION DATE: 08/29/181636 [employer] CONSULTANT: AUDREY 08/29/181636 RPT#: [id number] DC DATE: STATUS: ADM IN [facility] [address] [place] [address] END OF REPORT
--- NOTE | 2018-08-29 16:49 | MORECARE ---
CASE MANAGEMENT DISCHARGE SUMMARY PATIENT: NAV ELWIS UNIT: [id number] ADM DATE: 08/19/18 AGE: 63 : 51 SEX: F ROOM/BED: D.1207 AUTHOR: NIKKO,DOC PHYSICIAN: REFERRING PHYSICIAN: LUCA SOLANO MD DATE OF SERVICE: 08/29/18 Discharge Plan Patient Name: NAV LEWIS Facility: [facility]:[place] : 1955 Planned Disposition: Snf Facility Anticipated Discharge Date: 08/26/18 Discharge Date: Expected LOS: 7 Initial Reviewer: [email or web address] Initial Review Date: 08/19/2018 Generated: 08/29/18 5:49 pm Comments DCP- Discharge Planning Updated by [email or web address]: Cinthia Mar on 08/29/18 3:[address] Late Entry for 08/29/18 15:20 CM met with patient about discharge plans to go home with [facility]. Patient signed BRITTNEY for [facility]. CM explained and served DC [facility]. Patient informed CM that she would need to go home via ambulance. CM informed patients nurse, Roz. CM called [facility]. Spoke with Cody about referral. States agency will admit patient on Sunday to home health. Faxed records as requested. CM Called Peace Tian with [facility] about need to resume regularly scheduled dialysis in [place] starting Sunday. Peace verbalized understanding and stated everything is ready for patient to resume dialysis Sunday. CM will continue to follow and assist as needed with discharge planning / needs. DCP- Discharge Planning Updated by [id number]: Cinthia Mar on 08/27/18 2:[address] CM spoke with patient and her about status of referral . Explained to them the CM did not think her insurance would approve SNF since she was refusing PT visits. CM asked patient and spouse what their discharge plan is if SNF does not accept her. Both stated the plan was to discharge to home via ambulance. A few minutes later patient's spouse came to nurses station and informed CM that they decided to just go home. They do not want to pursue SNF at this time. CM verbalized understanding. CM called Peace Tian to verify HD was able to resume at patient's usual clinic tomorrow. Peace stated yes, she would contact HD clinic and tell them to expect patient tomorrow. CM called Dr. Guillory, spoke Joanna about patient's request to discharge home. SN was informed that Dr. Regalado was program production specialist. CM called and spoke with Blanca Gaitan. Was informed by Blanca that patient could not discharge home d/t safety issues. Blanca stated Dr. Guillory will speak with patient in a.m. CM informed patient and spouse. DCP- Discharge Planning Updated by [id number]: Cinthia Mar on 08/27/18 2:[address] CM spoke with Casi Mullins about status of acceptance. Casi stated facility was verifying patient's secondary insurance and would let CM know as soon as facility was finished making financial arrangements. CM faxed updated records as requested. CM will continue to follow and assist as needed with discharge planning / needs. DCP- Discharge Planning Updated by [id number]: Jeniffer Negron on 08/26/18 3:[address] CM SPOKE WITH CASI MULLINS TODAY REGARDING REFERRAL. SHE STATED WAS COGNIZANT OF THE PATIENT. AWAITING ADDITIONAL FINANCIAL INFORMATION. WILL PROVIDE CLINICAL UPDATE. DCP- Discharge Planning Updated by [email or web address]: Cinthia Mar on 08/23/18 3:[address] Patient Name: NAV LEWIS Admission Status: ER Accout number: [id number] Admission Date: 08-19-2018 : 1955 Admission Diagnosis:WEAKNESS Attending: LUCA SOLANO Current LOS: 4 Anticipated DC Date: 08-26-2018 Planned Disposition: Snf Facility Primary Insurance: MEDICARE A & B Discharge Planning Comments: After obtaining verbal consent, CM met with patient and her spouse about discharge planning / needs. Patient and spouse informed CM that they want patient to go to [facility] SNF (Medicare bed) for rehab upon hospital [place]. States they do not want to go back to [facility]. States they were not happy with their stay there. Spouse signed BRITTNEY form. CM called Casi Mullins with [facility] about referral. Faxed records as requested. CM will continue to follow and assist as needed with discharge planning. Dispensing And Measuring Optician: Cinthia Mar DCPIA - Discharge Planning Initial Assessment Updated by [email or web address]: Cinthia Mar on 08/23/18 4:13 pm * Is the patient Alert and Oriented? Yes * How many steps to enter\exit or inside your home? Ramp * PCP Dr. Jenkins in [place] * [facility] in [place] * Preadmission Environment Home with Family * ADLs Partial Dependent * Partial ADLs (Assistance needed) Ambulation Bathing Dressing Medication Management Toileting Transfers * Equipment CPAP Hospital Bed Bandar Lift Oxygen Wheelchair * Other Equipment Home and Portable Oxygen * List name and contact numbers for known caregivers / representatives who currently or will assist patient after discharge: Ilan Lewis, spouse, cell [phone] * Verbal permission to speak to the caregivers and representatives has been obtained from the patient. Yes * Community resources currently utilized Home Health * Please name any agencies selected above. [facility], [place] [facility], MWF 11:00, Medicaid Transportation * Additional services required to return to the preadmission environment? No * Can the patient safely return to the preadmission environment? Yes * Has this patient been hospitalized within the prior 30 days at any hospital? Yes External Providers [facility] Next Contact Date: Service Request Date: Service Type: Resolution: Reviewer: Comments: Coverage Notice Reviewer: [id number] Mar Notice Issued Date-Time: 08/29/2018 15:25 Notice Type: Patient Choice Letter Notice Delivered To: Patient Relationship to Patient: Self Family Support Worker Name: Delivery Method: HAND - Hand Delivered Cassy Days: Prior Verbal Notification: Recipient Understood Notice: Yes Recipient Signature: Yes Med Rec Note Co-signed by Attending: Coverage Notice Comment: [facility] Reviewer: GELY Mar Notice Issued Date-Time: 08/29/2018 15:30 Notice Type: IM Discharge Notice Notice Delivered To: Patient Relationship to Patient: Self Family Support Worker Name: Delivery Method: HAND - Hand Delivered Cassy Days: Prior Verbal Notification: Recipient Understood Notice: Yes Recipient Signature: Yes Med Rec Note Co-signed by Attending: Coverage Notice Comment: Reviewer: GELY Mar Notice Issued Date-Time: 08/23/2018 14:35 Notice Type: Patient Choice Letter Notice Delivered To: Family Member Relationship to Patient: Spouse Family Support Worker Name: Candelaria Head Delivery Method: HAND - Hand Delivered Cassy Days: Prior Verbal Notification: Recipient Understood Notice: Yes Recipient Signature: Yes Med Rec Note Co-signed by Attending: Coverage Notice Comment: Yady Dumont Last DP export: 08/29/18 3:38 pm Patient Name: NAV LEWIS Page [id number] at 1649 All edits/amendments must be made on the electronic document DICTATION DATE: 08/29/181648 SLEEP TECHNOLOGIST: AUDREY 08/29/181648 RPT#: [id number] DC DATE: STATUS: ADM IN [facility] [address] [place] [address] END OF REPORT
--- NOTE | 2018-08-29 18:19 | NUR ---
NO CHANGES NOTED AT THIS TIME.
--- NOTE | 2018-08-29 19:15 | NUR ---
PATIENT LAYING IN BED. NO COMPLAINTS AT THIS TIME. NO DISTRESS NOTED.
[2018-08-29 19:48] VITALS: BP 150/60
[2018-08-29 23:43] VITALS: BP 116/69
--- NOTE | 2018-08-30 01:25 | NUR ---
PATIENT LAYING IN BED. NO DISTRESS NOTED. NO COMPLAINTS AT THIS TIME.
--- NOTE | 2018-08-30 01:42 | NUR ---
I have reviewed this patient and I concur with the Shift Assessment completed by the Licensed Practical Nurse today this shift.
--- NOTE | 2018-08-30 03:45 | NUR ---
PATIENT LAYING IN BED. EYES CLOSED CHEST RISING AND FALLING.
[2018-08-30 04:00] VITALS: BP 141/65
[2018-08-30 06:41] LABS: HEMATOCRIT 32.8 % (36.0-48.0); HEMOGLOBIN 10.2 g/dL (12-16); IMMATURE GRANULOCYTES 0.6 % (0-5); LYMPHOCYTES 37.8 % (15-50); MCH 28.7 pg (26.0-34.0); MCHC 31.1 g/dL (31.0-37.0); MCV 92.4 fL (80.0-100.0); MEAN PLATELET VOLUME 8.5 fL (7.4-10.4); MONOCYTES 7.1 % (2-11); NEUTROPHILS 47.5 % (40-80); PLATELET COUNT 268 10x3/uL (130-400); RBC 3.55 10x6/uL (4.00-5.40); RDW 17.3 % (11.5-14.5); WBC 5.2 10x3/uL (4.8-10.8)
[2018-08-30 07:15] LABS: ANION GAP 12.1 mmol/L (8-16); CALCIUM 10.7 mg/dL (8.5-10.1); CARBON DIOXIDE 27.7 mmol/L (21.0-32.0); CREATININE - SERUM 4.6 mg/dL (0.6-1.3); PHOSPHOROUS 4.6 mg/dL (2.5-4.9); POTASSIUM - SERUM 3.8 mmol/L (3.5-5.1)
--- NOTE | 2018-08-30 07:47 | NUR ---
PATIENT SITTING UP IN CHAIR. NO COMPLAINTS. ASSISTED BACK TO BED. ALL NEEDS MET AT THIS TIME.
[2018-08-30 07:48] VITALS: BP 155/30
[2018-08-30 12:33] VITALS: BP 150/71
--- NOTE | 2018-08-30 12:42 | NUR ---
PATIENT HAS NOT BEEN VERY COMPLIANT WITH THEARPY OVER THE PAST FEW DAYS. SHE DID ATTEMPT TO MOBILIZE WITH THERAPY WHEN SHE FIRST ARRIVED BUT DID NOT TOLERATE SITTING POSITION WELL OR CHANGING POSITIONS DURING ATTMEPTED MOBILIZATION. DUE TO THIS FACT AND THE FACT THAT SHE REMAINS WEAK, IN MY PROFESSIONAL OPINION THE BEST MODE OF TRANSPORTATION WHEN SHE IS TO D/C FROM ACUTE FLOOR IS FOR HER TO GO VIA AMBULANCE. SHE WOULD BENEFIT FROM EMT STAFF HELPING HER WHEN SHE ARRIVES HOME IT IS JUST HER AND HER . JUICE WEST, PT, DPT
[2018-08-30] MEDS ORDERED: BACTRIM 400/80 MG TA PO (13:17)
--- NOTE | 2018-08-30 13:38 | NUR ---
APPROVES OF THE ELECTRIC RANGE SERVICER CHARTING, ASSISTED THE PATIENT NEEDED.
--- NOTE | 2018-08-30 17:10 | NUR ---
DISCHARGE INSTRUCTIONS PREVIOUSLY DISCUSSED AND SIGNED WITH RN AND PIV REMOVED. AT THIS TIME AMBULANCE ARRIVED. PATIENT MOVED TO [facility]. ALL BLONGINGS SENT WITH EARLIER. PATIENT DISCHARGED HOME VIA AMBULANCE. CALLED REQUESTED TO LET HIM KNOW THEY ARE ON THEIR WAY.
--- NOTE | 2018-08-30 17:14 | MORECARE ---
CASE MANAGEMENT DISCHARGE SUMMARY PATIENT: NAV LEWIS UNIT: [id number] ADM DATE: 08/19/18 AGE: 63 : 51 SEX: F ROOM/BED: D.1207 AUTHOR: NIKKO,DOC PHYSICIAN: REFERRING PHYSICIAN: LUCA SOLANO MD DATE OF SERVICE: 08/30/18 Discharge Plan Patient Name: NAV LEWIS Facility: [facility]:[place] : 1955 Planned Disposition: Shelter Facility Anticipated Discharge Date: 08/26/18 Discharge Date: Expected LOS: 7 Initial Reviewer: [email or web address] Initial Review Date: 08/19/2018 Generated: 08/30/18 6:14 pm Comments DCP- Discharge Planning Updated by [id number]: Cinthia Mar on 08/30/18 4:[address] Late entry 15:00 CM informed by nurse ready to call ambulance for transport home. [facility] ETA is 16:30. CM faxed dc meds and dc instructions to [facility]. Agency will admit patient this weekend. Peace Tian verified patient was all set up to resume dialysis M/W/. CM will continue to follow and assist as needed with discharge planning. DCP- Discharge Planning Updated by [id number]: Cinthia Mar on 08/29/18 3:[address] Late Entry for 08/29/18 15:20 CM met with patient about discharge plans to go home with [facility]. Patient signed BRITTNEY for [facility]. CM explained and served DC IMM. Patient informed CM that she would need to go home via ambulance. CM informed patients nurse, Roz. CM called [facility]. Spoke with Cody about referral. [facility] agency will admit patient on Sunday to home health. Faxed records as requested. CM Called Peace Tian with [facility] about need to resume regularly scheduled dialysis in [place] starting Sunday. Peace verbalized understanding and stated everything is ready for patient to resume dialysis Sunday. CM will continue to follow and assist as needed with discharge planning / needs. DCP- Discharge Planning Updated by [email or web address]: Cinthia Mar on 08/27/18 2:[address] CM spoke with patient and her about status of referral . Explained to them the CM did not think her insurance would approve SNF since she was refusing PT visits. CM asked patient and spouse what their discharge plan is if SNF does not accept her. Both stated the plan was to discharge to home via ambulance. A few minutes later patient's spouse came to nurses station and informed CM that they decided to just go home. They do not want to pursue SNF at this time. CM verbalized understanding. CM called Peace Tian to verify HD was able to resume at patient's usual clinic tomorrow. Peace stated yes, she would contact HD clinic and tell them to expect patient tomorrow. CM called Dr. Guillory, spoke Joanna about patient's request to discharge home. SN was informed that Dr. Regalado was temperature control inspector. CM called and spoke with Blanca Gaitan. Was informed by Blanca that patient could not discharge home d/t safety issues. Blanca stated Dr. Guillory will speak with patient in a.m. CM informed patient and spouse. DCP- Discharge Planning Updated by [email or web address]: Cinthia Mar on 08/27/18 2:[address] CM spoke with Casi Mullins about status of acceptance. Casi stated facility was verifying patient's secondary insurance and would let CM know as soon as facility was finished making financial arrangements. CM faxed updated records as requested. CM will continue to follow and assist as needed with discharge planning / needs. DCP- Discharge Planning Updated by [email or web address]: Jeniffer Negron on 08/26/18 3:[address] CM SPOKE WITH CASI MULLINS TODAY REGARDING REFERRAL. SHE STATED WAS COGNIZANT OF THE PATIENT. AWAITING ADDITIONAL FINANCIAL INFORMATION. WILL PROVIDE CLINICAL UPDATE. DCP- Discharge Planning Updated by [id number]: Cinthia Mar on 08/23/18 3:[address] Patient Name: NAV LEWIS Admission Status: ER Accout number: [id number] Admission Date: 08-19-2018 : 1955 Admission Diagnosis:WEAKNESS Attending: LUCA SOLANO Current LOS: 4 Anticipated DC Date: 08-26-2018 Planned Disposition: Shelter Facility Primary Insurance: MEDICARE A & B Discharge Planning Comments: After obtaining verbal consent, CM met with patient and her spouse about discharge planning / needs. Patient and spouse informed CM that they want patient to go to [facility] (Medicare bed) for rehab upon hospital [place]. States they do not want to go back to [facility]. States they were not happy with their stay there. Spouse signed BRITTNEY form. CM called Casi Susanna with [facility] about referral. Faxed records as requested. CM will continue to follow and assist as needed with discharge planning. Cold Mill Operator: Cinthia Mar DCPIA - Discharge Planning Initial Assessment Updated by [id number]: Cinthia Mar on 08/23/18 4:13 pm * Is the patient Alert and Oriented? Yes * How many steps to enter\exit or inside your home? Ramp * PCP Dr. Jenkins in [place] * Pharm[facility] in [place] * Preadmission Environment Home with Family * ADLs Partial Dependent * Partial ADLs (Assistance needed) Ambulation Bathing Dressing Medication Management Toileting Transfers * Equipment CPAP Hospital Bed Bandar Lift Oxygen Wheelchair * Other Equipment Home and Portable Oxygen * List name and contact numbers for known caregivers / representatives who currently or will assist patient after discharge: Ilan Lewis, spouse, cell [phone] * Verbal permission to speak to the caregivers and representatives has been obtained from the patient. Yes * Community resources currently utilized Home Health * Please name any agencies selected above. [facility], [place] [facility], MWF 11:00, Medicaid Transportation * Additional services required to return to the preadmission environment? No * Can the patient safely return to the preadmission environment? Yes * Has this patient been hospitalized within the prior 30 days at any hospital? Yes Coverage Notice Reviewer: [id number] Alka Mar Notice Issued Date-Time: 08/23/2018 14:35 Notice Type: Patient Choice Letter Notice Delivered To: Family Member Relationship to Patient: Spouse Trench Digger Helper Name: Candelaria Head Delivery Method: HAND - Hand Delivered Cassy Days: Prior Verbal Notification: Recipient Understood Notice: Yes Recipient Signature: Yes Med Rec Note Co-signed by Attending: Coverage Notice Comment: Yady Dumont Reviewer: [id number] Alka Mar Notice Issued Date-Time: 08/29/2018 15:25 Notice Type: Patient Choice Letter Notice Delivered To: Patient Relationship to Patient: Self Trench Digger Helper Name: Delivery Method: HAND - Hand Delivered Cassy Days: Prior Verbal Notification: Recipient Understood Notice: Yes Recipient Signature: Yes Med Rec Note Co-signed by Attending: Coverage Notice Comment: [facility] Reviewer: [id number] - Cinthiashahid Mar Notice Issued Date-Time: 08/29/2018 15:30 Notice Type: IM Discharge Notice Notice Delivered To: Patient Relationship to Patient: Self Trench Digger Helper Name: Delivery Method: HAND - Hand Delivered Cassy Days: Prior Verbal Notification: Recipient Understood Notice: Yes Recipient Signature: Yes Med Rec Note Co-signed by Attending: Coverage Notice Comment: Last DP export: 08/29/18 3:49 pm Patient Name: NAV LEWIS Page [id number] at 1714 All edits/amendments must be made on the electronic document DICTATION DATE: 08/30/181713 CARE TRANSITIONS NURSE: AUDREY 08/30/181713 RPT#: [id number] DC DATE: STATUS: ADM IN [facility] [address] [place] [address] END OF REPORT
--- NOTE | 2018-08-30 18:00 | MORECARE ---
CASE MANAGEMENT DISCHARGE SUMMARY PATIENT: NAV LEWIS UNIT: [id number] ADM DATE: 08/19/18 AGE: 63 : 51 SEX: F ROOM/BED: D.1207 AUTHOR: NIKKO,DOC PHYSICIAN: REFERRING PHYSICIAN: LUCA SOLANO MD DATE OF SERVICE: 08/30/18 Discharge Plan Patient Name: NAV LEWIS Facility: [facility]:[place] : 1955 Planned Disposition: Fci Facility Anticipated Discharge Date: 08/26/18 Discharge Date: 08/30/2018 Expected LOS: 7 Initial Reviewer: [id number] Initial Review Date: 08/19/2018 Generated: 08/30/18 7:00 pm Comments DCP- Discharge Planning Updated by [id number]: Cinthia Mar on 08/30/18 4:[address] Late entry 15:00 CM informed by nurse ready to call ambulance for transport home. [facility]. ETA is 16:30. CM faxed dc meds and dc instructions to [facility]. Agency will admit patient this weekend. Peace Tian verified patient was all set up to resume dialysis M/W/. CM will continue to follow and assist as needed with discharge planning. DCP- Discharge Planning Updated by [id number]: Cinthia Mar on 08/29/18 3:[address] Late Entry for 08/29/18 15:20 CM met with patient about discharge plans to go home with [facility]. Patient signed BRITTNEY for [facility]. CM explained and served DC IMM. Patient informed CM that she would need to go home via ambulance. CM informed patients nurse, Roz. CM called [facility]. Spoke with Cody about referral. [facility] agency will admit patient on Sunday to home health. Faxed records as requested. CM Called Peace Tian with [facility] about need to resume regularly scheduled dialysis in [place] starting Sunday. Peace verbalized understanding and stated everything is ready for patient to resume dialysis Sunday. CM will continue to follow and assist as needed with discharge planning / needs. DCP- Discharge Planning Updated by [id number]: Cinthia Mar on 08/27/18 2:[address] CM spoke with patient and her about status of referral . Explained to them the CM did not think her insurance would approve SNF since she was refusing PT visits. CM asked patient and spouse what their discharge plan is if SNF does not accept her. Both stated the plan was to discharge to home via ambulance. A few minutes later patient's spouse came to nurses station and informed CM that they decided to just go home. They do not want to pursue SNF at this time. CM verbalized understanding. CM called Peace Johnsonann to verify HD was able to resume at patient's usual clinic tomorrow. Peace stated yes, she would contact HD clinic and tell them to expect patient tomorrow. CM called Dr. Guillory, spoke Joanna about patient's request to discharge home. SN was informed that Dr. Regalado was front end alignment specialist. CM called and spoke with Blanca Gaitan. Was informed by Blanca that patient could not discharge home d/t safety issues. Blanca stated Dr. Guillory will speak with patient in a.m. CM informed patient and spouse. DCP- Discharge Planning Updated by [id number]: Cinthia Mar on 08/27/18 2:[address] CM spoke with Casi Mullins about status of acceptance. Casi stated facility was verifying patient's secondary insurance and would let CM know as soon as facility was finished making financial arrangements. CM faxed updated records as requested. CM will continue to follow and assist as needed with discharge planning / needs. DCP- Discharge Planning Updated by [id number]: Jeniffer Negron on 08/26/18 3:[address] CM SPOKE WITH CASI MULLINS TODAY REGARDING REFERRAL. SHE STATED WAS COGNIZANT OF THE PATIENT. AWAITING ADDITIONAL FINANCIAL INFORMATION. WILL PROVIDE CLINICAL UPDATE. DCP- Discharge Planning Updated by [id number]: Cinthia Mar on 08/23/18 3:[address] Patient Name: NAV LEWIS Admission Status: ER Accout number: [id number] Admission Date: 08-19-2018 : 1955 Admission Diagnosis:WEAKNESS Attending: LUCA SOLANO Current LOS: 4 Anticipated DC Date: 08-26-2018 Planned Disposition: Fci Facility Primary Insurance: MEDICARE A & B Discharge Planning Comments: After obtaining verbal consent, CM met with patient and her spouse about discharge planning / needs. Patient and spouse informed CM that they want patient to go to [facility] (Medicare bed) for rehab upon hospital [place]. States they do not want to go back to [facility]. States they were not happy with their stay there. Spouse signed BRITTNEY form. CM called Casi Mullins with [facility] about referral. Faxed records as requested. CM will continue to follow and assist as needed with discharge planning. Technology Internship: Cinthia Mar DCPIA - Discharge Planning Initial Assessment Updated by [email or web address]: Cinthia Mar on 08/23/18 4:13 pm * Is the patient Alert and Oriented? Yes * How many steps to enter\exit or inside your home? Ramp * PCP Dr. Jenkins in [place] * Pharm[facility] in [place] * Preadmission Environment Home with Family * ADLs Partial Dependent * Partial ADLs (Assistance needed) Ambulation Bathing Dressing Medication Management Toileting Transfers * Equipment CPAP Hospital Bed Bandar Lift Oxygen Wheelchair * Other Equipment Home and Portable Oxygen * List name and contact numbers for known caregivers / representatives who currently or will assist patient after discharge: Ilan Proctors, spouse, cell [phone] * Verbal permission to speak to the caregivers and representatives has been obtained from the patient. Yes * Community resources currently utilized Home Health * Please name any agencies selected above. [facility], [place] [facility], MWF 11:00, Medicaid Transportation * Additional services required to return to the preadmission environment? No * Can the patient safely return to the preadmission environment? Yes * Has this patient been hospitalized within the prior 30 days at any hospital? Yes Coverage Notice Reviewer: [id number] Alka Mar Notice Issued Date-Time: 08/29/2018 15:25 Notice Type: Patient Choice Letter Notice Delivered To: Patient Relationship to Patient: Self Tannery Worker Name: Delivery Method: HAND - Hand Delivered Cassy Days: Prior Verbal Notification: Recipient Understood Notice: Yes Recipient Signature: Yes Med Rec Note Co-signed by Attending: Coverage Notice Comment: [facility] Reviewer: [id number] Alka Mar Notice Issued Date-Time: 08/29/2018 15:30 Notice Type: IM Discharge Notice Notice Delivered To: Patient Relationship to Patient: Self Tannery Worker Name: Delivery Method: HAND - Hand Delivered Cassy Days: Prior Verbal Notification: Recipient Understood Notice: Yes Recipient Signature: Yes Med Rec Note Co-signed by Attending: Coverage Notice Comment: Reviewer: [id number] - Cinthia Mar Notice Issued Date-Time: 08/23/2018 14:35 Notice Type: Patient Choice Letter Notice Delivered To: Family Member Relationship to Patient: Spouse Tannery Worker Name: Candelaria Head Delivery Method: HAND - Hand Delivered Cassy Days: Prior Verbal Notification: Recipient Understood Notice: Yes Recipient Signature: Yes Med Rec Note Co-signed by Attending: Coverage Notice Comment: Yady Tokio Last DP export: 08/30/18 4:14 pm Patient Name: NAV LEWIS Page [id number] at 1800 All edits/amendments must be made on the electronic document DICTATION DATE: 08/30/181758 INCIDENT HANDLER: AUDREY 08/30/181758 RPT#: [id number] DC DATE:08/30/18 STATUS: DIS IN [facility] [address] [place] [address] END OF REPORT
--- NOTE | 2018-09-02 06:53 | DS ---
PATIENT:NAV LEWIS :51 MEDICAL RECORD: [id number] DISCHARGE SUMMARY ADMISSION DATE: 08/19/18 DISCHARGE DATE: 08/30/18 HISTORY OF PRESENT ILLNESS: Ms. Lewis is a 63-year-old white female with end-stage renal disease who is recently transferred here from [place], was here last week with weakness and discharged to home per family request, at home had recurrent falling episodes. was unable to lift her, brought back to the Emergency Room and admitted for the above. HOSPITAL COURSE: The patient did have recurrent nausea and vomiting, did have an EGD by Dr. Baxter with a finding of a large esophageal ulcer. Her gastric emptying scan had previously been negative and so she was placed back on her tube feedings and tolerated clear and full liquids throughout her hospitalization. On tube feeding, she became hypercalcemic again and this was discontinued when she was able to take oral diet and treated with calcitonin, her calcium was normal at the time of discharge. Her TSH was elevated and we accelerated that dosing and will follow that as an outpatient. She did have UTI again with yeast and gram-negative betzy. She tolerated a low-dose Bactrim therapy and fluconazole and will finish this Bactrim as an outpatient. She underwent hemodialysis without difficulty. and patient originally agreed to rehab at snf in [place] but declined at the time of discharge and now will be discharged home with home health and home PT and resume outpatient dialysis. She was sitting in a chair at the time of discharge and was otherwise stable. DISCHARGE DIAGNOSES: 1. Weakness, improved with etiology being her hypothyroidism as well as her deconditioning. 2. Urinary tract infection, on therapy. 3. Hypercalcemia, resolved. 4. Esophageal ulcer with recurrent nausea and vomiting. 5. End-stage renal disease, on chronic dialysis. 6. Chronic erythropoietin-dependent anemia. PLAN: The patient will be discharged today. I will see her in [facility] in 2 weeks. She will continue her home PT and home OT. She will have home health. She will have clear to full liquids and frequent voids. DISCHARGE MEDICATIONS: Xanax 0.5 b.i.d., Synthroid 175 mcg daily, Requip 0.5 mg at bedtime. Bactrim 1/2 tab daily for 2 more doses. She has finished her fluconazole, Ultram 50 mg p.r.n., Carafate 1 g a.c. and at bedtime, Levemir 10 units at bedtime, Prozac 20 mg daily, amitriptyline 25 bedtime. She will resume Epogen in the dialysis unit, Protonix 40 mg b.i.d., Linzess 145 daily, Cordarone 200 mg daily, Renagel 0.8 t.i.d., and Levsin 0.125 t.i.d. p.r.n. We will leave in her PD catheter and her tube feeding catheter. We will leave these clamped for the time being. TRANSINT:[id number] Voice Confirmation ID: [id number] DOCUMENT ID: [id number] cc: [facility] DISCHARGE SUMMARY REPORT [id number] NAV LEWIS, JENNIFER ABBASI at 0653 CC: [id number] DICTATION DATE: 08/30/18701 DECK LID FITTER: 08/31/18 0217 DIS IN 08/30/18 [facility] [address] [place] [address]
== END 2018-08-30 17:10 | disposition home health service (06) | DRG 643 ==
LOC: D.ER 10:54 → D.M3 13:36 → D.EDHOLD 13:36 → D.M3 13:58
PROVIDERS: Family Medicine; Internal Medicine Gastroenterology; Internal Medicine Nephrology; ADMIT Internal Medicine Nephrology; ATTEND Internal Medicine Nephrology
PROC: 5A1D70Z Performance of Urinary Filtration, Intermittent, Less than 6 Hours Per Day (ICD-10-PCS; 2018-08-19)
PROC: 0DB68ZX Excision of Stomach, Via Natural or Artificial Opening Endoscopic, Diagnostic (ICD-10-PCS; principal; 2018-08-22 15:45)
DX: E03.9 Hypothyroidism, unspecified (principal); N18.6 End stage renal disease; G72.81 Critical illness myopathy; K22.10 Ulcer of esophagus without bleeding; N39.0 Urinary tract infection, site not specified; E11.22 Type 2 diabetes mellitus with diabetic chronic kidney disease; K21.0 Gastro-esophageal reflux disease with esophagitis; Z99.2 Dependence on renal dialysis; I50.9 Heart failure, unspecified; D63.1 Anemia in chronic kidney disease; I48.91 Unspecified atrial fibrillation; F41.9 Anxiety disorder, unspecified; R55 Syncope and collapse; H92.09 Otalgia, unspecified ear; B96.1 Klebsiella pneumoniae [K. pneumoniae] as the cause of diseases classified elsewhere; E83.52 Hypercalcemia; Z87.891 Personal history of nicotine dependence